=== PATIENT | male | born 1930 | race Caucasian/White ===

== ENCOUNTER 2018-04-04 09:47 | Inpatient (IN) | payer OTHER ==
[~2018-04-04] VITALS: Ht 180.3 cm; Wt 86.7 kg
[2018-04-04 09:56] VITALS: Ht 180.3 cm; Wt 86.7 kg
[2018-04-04 12:06] LABS: PLATELET COUNT 193 x10^3mcL (130-400); RED CELL DISTRIBUTION WIDTH 14.4 % (11.5-14.5)
[2018-04-04 12:10] LABS: BASOPHIL % 0 % (0-2)
[2018-04-04 12:21] LABS: ALKALINE PHOSPHATASE 81 U/L (46-116); ALT/SGPT 27 U/L (16-63); AST/SGOT 51 U/L (15-37); CALCIUM 8.7 mg/dL (8.5-10.1); CARBON DIOXIDE 31.4 mmol/L (21-32); CHLORIDE SERUM 105 mmol/L (98-107); GLUCOSE SERUM 132 mg/dL (74-106); POTASSIUM SERUM 4.1 mmol/L (3.5-5.1); SODIUM SERUM 142 mmol/L (136-145); TOTAL PROTEIN, SERUM 7.1 g/dL (6.4-8.2)
[2018-04-04 12:24] LABS: ALBUMIN 2.6 g/dL (3.4-5.0)
[2018-04-04] MEDS ORDERED: LIPITOR80 MG PO (15:03)
[2018-04-04] MEDS ORDERED: ZETIA10 M1 PO (15:04)
[2018-04-04] MEDS ORDERED: METFORMIN HYDR500 M1 PO (15:04)
[2018-04-04] MEDS ORDERED: ELIQUIS2.5 MG PO (15:04)
[2018-04-04] MEDS ORDERED: MULTI-VITAMINS1 TAB PO (15:05)
[2018-04-04] MEDS ORDERED: PREDNISONE20 MG PO (15:05)
[2018-04-04] MEDS ORDERED: WELCHOL3.75 GM/P1 PO (15:06)
[2018-04-04] MEDS ORDERED: GOOD SENSE ASPI81 M3 PO (15:06)
[2018-04-04] MEDS ORDERED: TOPROL XL25 MG PO (15:06)
[2018-04-04] MEDS ORDERED: ALENDRONATE SOD70 M2 PO (15:06)
[2018-04-04 16:51] VITALS: BP 147/63
[2018-04-04 16:52] LABS: MAGNESIUM 2.1 mg/dL (1.8-2.4); PHOSPHOROUS 2.5 mg/dL (2.5-4.9)
[2018-04-04 16:55] LABS: CHOLESTEROL/HDL RATIO 3.8
[2018-04-04 16:59] LABS: FREE T4 1.2 ng/dL (0.76-1.46); FREE THYROXINE INDEX 2.9 ug/dL (1.4-4.5); T4(THYROXINE) 7.8 ug/dL (4.7-13.3)
[2018-04-04 17:36] LABS: T3 TOTAL 0.79 ng/mL
[2018-04-04 20:43] VITALS: BP 157/59
[2018-04-05 03:38] LABS: UA SPECIFIC GRAVITY 1.025 (1.005-1.035); microscopic required? YES; urine erythrocyte 1+ (NEGATIVE)
[2018-04-05 04:02] LABS: AMPHETAMINE QUAL UR NONE DETECTED (See below)
[2018-04-05 05:50] VITALS: BP 137/73
[2018-04-05 06:31] LABS: BASOPHIL % 0.2 % (0-2); PLATELET COUNT 182 x10^3mcL (130-400)
[2018-04-05 06:37] LABS: CALCIUM 8.3 mg/dL (8.5-10.1); CARBON DIOXIDE 29.7 mmol/L (21-32); CHLORIDE SERUM 108 mmol/L (98-107); CREATININE SERUM 0.9 mg/dL (0.7-1.3); GLUCOSE SERUM 99 mg/dL (74-106); MAGNESIUM 2.2 mg/dL (1.8-2.4); PHOSPHOROUS 2.6 mg/dL (2.5-4.9); POTASSIUM SERUM 3.6 mmol/L (3.5-5.1); SODIUM SERUM 144 mmol/L (136-145)
[2018-04-05 08:24] LABS: RED CELL DISTRIBUTION WIDTH 14.8 % (11.5-14.5)
[2018-04-05 09:57] VITALS: BP 143/74
[2018-04-05 14:20] VITALS: BP 118/72
[2018-04-05 18:29] VITALS: BP 144/79
[2018-04-05 21:00] VITALS: BP 149/80
[2018-04-06 06:21] VITALS: BP 160/82
[2018-04-06 06:58] LABS: BASOPHIL % 0.1 % (0-2); PLATELET COUNT 206 x10^3mcL (130-400)
[2018-04-06 07:09] LABS: CALCIUM 8.4 mg/dL (8.5-10.1); CARBON DIOXIDE 28.5 mmol/L (21-32); CHLORIDE SERUM 107 mmol/L (98-107); CREATININE SERUM 0.8 mg/dL (0.7-1.3); GLUCOSE SERUM 116 mg/dL (74-106); MAGNESIUM 2.1 mg/dL (1.8-2.4); PHOSPHOROUS 2.6 mg/dL (2.5-4.9); POTASSIUM SERUM 3.8 mmol/L (3.5-5.1); SODIUM SERUM 143 mmol/L (136-145)
[2018-04-06 07:11] LABS: RED CELL DISTRIBUTION WIDTH 14.6 % (11.5-14.5)
[2018-04-06 10:23] VITALS: BP 141/81
[2018-04-06 14:16] VITALS: BP 155/50
[2018-04-06 17:53] VITALS: BP 138/71
[2018-04-06 22:16] VITALS: BP 152/91
[2018-04-07 05:45] VITALS: BP 148/82
[2018-04-07 07:09] LABS: BASOPHIL % 0.2 % (0-2); PLATELET COUNT 220 x10^3mcL (130-400)
[2018-04-07 07:12] LABS: CALCIUM 8.5 mg/dL (8.5-10.1); CARBON DIOXIDE 29.4 mmol/L (21-32); CHLORIDE SERUM 108 mmol/L (98-107); CREATININE SERUM 0.7 mg/dL (0.7-1.3); GLUCOSE SERUM 113 mg/dL (74-106); PHOSPHOROUS 2.9 mg/dL (2.5-4.9); POTASSIUM SERUM 4.2 mmol/L (3.5-5.1); RED CELL DISTRIBUTION WIDTH 14.6 % (11.5-14.5); SODIUM SERUM 143 mmol/L (136-145)
[2018-04-07 08:04] VITALS: BP 147/71
[2018-04-07 13:23] VITALS: BP 147/71
[2018-04-07 13:35] VITALS: BP 140/73
[2018-04-07] MEDS ORDERED: BACDS PO (13:54)
[2018-04-07 17:40] VITALS: BP 144/71
[2018-04-07 19:50] VITALS: BP 125/71
[2018-04-08 06:10] VITALS: BP 137/70
[2018-04-08 07:50] VITALS: BP 130/72
[2018-04-08 13:25] VITALS: BP 109/56
[2018-04-08 14:13] VITALS: BP 130/72
== END 2018-04-08 14:38 | DRG 564 ==
LOC: ED 09:47 → DU 14:21 → MU 14:21 → DU 16:25 → MU 16:35 → DU 16:37
PROVIDERS: Emergency Medicine; ADMIT Internal Medicine
DX: T79.6XXA Traumatic ischemia of muscle, initial encounter (principal); N17.0 Acute kidney failure with tubular necrosis; E44.0 Moderate protein-calorie malnutrition; E11.9 Type 2 diabetes mellitus without complications; E86.0 Dehydration; I48.91 Unspecified atrial fibrillation; I25.10 Atherosclerotic heart disease of native coronary artery without angina pectoris; R74.0 Nonspecific elevation of levels of transaminase and lactic acid dehydrogenase [LDH]; D72.829 Elevated white blood cell count, unspecified; G90.8 Other disorders of autonomic nervous system; M47.892 Other spondylosis, cervical region; I10 Essential (primary) hypertension; W18.39XA Other fall on same level, initial encounter; Z91.81 History of falling; Z79.82 Long term (current) use of aspirin; Z68.25 Body mass index [BMI] 25.0-25.9, adult; Z95.1 Presence of aortocoronary bypass graft; Z79.84 Long term (current) use of oral hypoglycemic drugs
CPT/HCPCS: 82962; 83880; 84439; 97110-GP; 97530-GP; J7030; J7512; Q0092

== ENCOUNTER 2018-06-03 11:54 | Inpatient (IN) | payer OTHER ==
[~2018-06-03] VITALS: Ht 180.3 cm; Wt 79.4 kg
[~2018-06-03 11:54] MED LIST: ALENDRONATE SOD70 M2 PO; BACDS PO; ELIQUIS2.5 MG PO; GOOD SENSE ASPI81 M3 PO; LIPITOR80 MG PO; METFORMIN HYDR500 M1 PO; MULTI-VITAMINS1 TAB PO; PREDNISONE20 MG PO; TOPROL XL25 MG PO; WELCHOL3.75 GM/P1 PO; ZETIA10 M1 PO
[2018-06-03 13:28] LABS: BASOPHIL % 0.3 % (0-2); PLATELET COUNT 225 x10^3mcL (130-400)
[2018-06-03 13:30] LABS: RED CELL DISTRIBUTION WIDTH 15.9 % (11.5-14.5)
[2018-06-03 13:37] LABS: CALCIUM 8.5 mg/dL (8.5-10.1); CARBON DIOXIDE 26.8 mmol/L (21-32); CHLORIDE SERUM 107 mmol/L (98-107); CREATININE SERUM 0.9 mg/dL (0.7-1.3); GLUCOSE SERUM 132 mg/dL (74-106); POTASSIUM SERUM 3.1 mmol/L (3.5-5.1); SODIUM SERUM 145 mmol/L (136-145)
[2018-06-03 13:42] LABS: ALBUMIN 2.2 g/dL (3.4-5.0); ALKALINE PHOSPHATASE 64 U/L (46-116); ALT/SGPT 21 U/L (16-63); AST/SGOT 58 U/L (15-37); BILIRUBIN TOTAL 0.79 mg/dL (0.20-1.00); CHOLESTEROL 115 mg/dL (<200); CHOLESTEROL/HDL RATIO 4.4; HDL CHOLESTEROL 26 mg/dL (40-60); LIPASE 469 IU/L (73-393); TOTAL PROTEIN, SERUM 6.8 g/dL (6.4-8.2); TRIGLYCERIDES 70 mg/dL (<150)
[2018-06-03 13:58] LABS: T3 TOTAL 0.78 ng/mL
[2018-06-03 14:02] LABS: microscopic required? NO
[2018-06-03 14:22] LABS: FREE T4 1.29 ng/dL (0.76-1.46); FREE THYROXINE INDEX 3.2 ug/dL (1.4-4.5); T4(THYROXINE) 8.8 ug/dL (4.7-13.3)
[2018-06-03 15:03] LABS: UA SPECIFIC GRAVITY 1.025 (1.005-1.035); urine erythrocyte NEGATIVE (NEGATIVE)
[2018-06-03] MEDS ORDERED: CERAVE237 ML (15:11)
[2018-06-03] MEDS ORDERED: ARICEPT5 MG PO (15:11)
[2018-06-03] MEDS ORDERED: NAPROXEN500 MG PO (15:12)
[2018-06-03] MEDS ORDERED: ENSURE ORIGINA237 M1 PO (15:13)
[2018-06-03] MEDS ORDERED: [UNRECOGNIZED DRUG - OTHER] (15:14)
[2018-06-03] MEDS ORDERED: MAPAP ARTHRITI650 MG PO (15:15)
[2018-06-03] MEDS ORDERED: NITROGLYCERIN0.4 MG SL (15:17)
[2018-06-03] MEDS ORDERED: GOOD NEIGH1200 MG/15 PO (15:17)
[2018-06-03 16:20] VITALS: BP 134/66
[2018-06-03 16:24] VITALS: Ht 180.3 cm; Wt 79.4 kg
[2018-06-03 21:33] VITALS: BP 152/66
[2018-06-04 05:21] VITALS: BP 108/69
[2018-06-04 08:28] VITALS: BP 158/77
[2018-06-04 13:15] VITALS: BP 138/57
[2018-06-04 17:15] VITALS: BP 141/63
[2018-06-04 19:40] VITALS: BP 97/73
[2018-06-05 05:24] VITALS: BP 147/67
[2018-06-05 06:44] LABS: CALCIUM 8.2 mg/dL (8.5-10.1); CARBON DIOXIDE 26.8 mmol/L (21-32); CHLORIDE SERUM 112 mmol/L (98-107); CREATININE SERUM 0.7 mg/dL (0.7-1.3); GLUCOSE SERUM 110 mg/dL (74-106); POTASSIUM SERUM 3.4 mmol/L (3.5-5.1); SODIUM SERUM 146 mmol/L (136-145)
[2018-06-05 07:02] LABS: BASOPHIL % 0.2 % (0-2); PLATELET COUNT 214 x10^3mcL (130-400)
[2018-06-05 08:40] VITALS: BP 138/63
[2018-06-05 12:15] VITALS: BP 113/64
[2018-06-05 16:20] VITALS: BP 148/67
[2018-06-05 21:05] VITALS: BP 117/59
[2018-06-06 05:52] VITALS: BP 139/64
[2018-06-06 06:23] LABS: PLATELET COUNT 225 x10^3mcL (130-400)
[2018-06-06 06:39] LABS: CALCIUM 8.8 mg/dL (8.5-10.1); CARBON DIOXIDE 24.8 mmol/L (21-32); CHLORIDE SERUM 111 mmol/L (98-107); CREATININE SERUM 0.7 mg/dL (0.7-1.3); GLUCOSE SERUM 97 mg/dL (74-106); MAGNESIUM 1.8 mg/dL (1.8-2.4); PHOSPHOROUS 3.2 mg/dL (2.5-4.9); POTASSIUM SERUM 3.6 mmol/L (3.5-5.1); RED CELL DISTRIBUTION WIDTH 15.8 % (11.5-14.5); SODIUM SERUM 145 mmol/L (136-145)
[2018-06-06 09:31] VITALS: BP 142/64
[2018-06-06 11:51] LABS: BAND NEUTROPHIL 1 % (0-10); BASOPHIL 0 % (0-2); MONOCYTE 8 % (0-7); SEGMENTED NEUTROPHILS 75 % (37-75)
[2018-06-06 11:52] LABS: acanthocyte (spur cell) 3+; ovalocyte/elliptocyte 2+; rbc morphology (normal/abnorm) ABNORMAL (NORMAL)
[2018-06-06 11:53] LABS: PLATELET MORPHOLOGY PLATELETS NORMAL
[2018-06-06 14:01] VITALS: BP 138/72
[2018-06-06 16:09] VITALS: BP 120/66
[2018-06-06 21:38] VITALS: BP 104/71
[2018-06-07 05:55] VITALS: BP 143/70
[2018-06-07 06:43] LABS: PLATELET COUNT 235 x10^3mcL (130-400)
[2018-06-07 06:51] LABS: RED CELL DISTRIBUTION WIDTH 15.8 % (11.5-14.5)
[2018-06-07 06:54] LABS: CALCIUM 8.5 mg/dL (8.5-10.1); CARBON DIOXIDE 24.8 mmol/L (21-32); CHLORIDE SERUM 112 mmol/L (98-107); CREATININE SERUM 0.7 mg/dL (0.7-1.3); GLUCOSE SERUM 94 mg/dL (74-106); POTASSIUM SERUM 3.8 mmol/L (3.5-5.1); SODIUM SERUM 146 mmol/L (136-145)
[2018-06-07 09:26] VITALS: BP 136/58
[2018-06-07 10:16] LABS: BAND NEUTROPHIL 2 % (0-10); BASOPHIL 0 % (0-2); MONOCYTE 6 % (0-7); SEGMENTED NEUTROPHILS 53 % (37-75)
[2018-06-07 10:17] LABS: PLATELET MORPHOLOGY PLATELETS NORMAL; acanthocyte (spur cell) 1+; burr cell (echinocyte) 1+; rbc morphology (normal/abnorm) ABNORMAL (NORMAL)
[2018-06-07 13:15] VITALS: BP 143/81
[2018-06-07 16:44] VITALS: BP 141/79
[2018-06-07] MEDS ORDERED: KEF500 PO (16:50)
[2018-06-07 17:13] VITALS: BP 143/81
== END 2018-06-07 19:40 | DRG 871 ==
LOC: ED 11:54 → DU 14:50
PROVIDERS: General Practice; Specialist; ADMIT Internal Medicine
DX: A41.9 Sepsis, unspecified organism (principal); G93.41 Metabolic encephalopathy; L03.114 Cellulitis of left upper limb; M62.82 Rhabdomyolysis; E44.0 Moderate protein-calorie malnutrition; N17.9 Acute kidney failure, unspecified; E11.65 Type 2 diabetes mellitus with hyperglycemia; E86.0 Dehydration; E87.6 Hypokalemia; I10 Essential (primary) hypertension; D50.9 Iron deficiency anemia, unspecified; Z79.82 Long term (current) use of aspirin; Z79.1 Long term (current) use of non-steroidal anti-inflammatories (NSAID); Z79.84 Long term (current) use of oral hypoglycemic drugs; Z79.52 Long term (current) use of systemic steroids; Z91.81 History of falling
CPT/HCPCS: 82962; 83880; 84439; 97110-GP; 97116-GP; 97530-GP; A4570; C9113; J2543; J7030; Q0092